=== PATIENT | male | born 1970 | race African-American/Black ===

== ENCOUNTER 2021-09-29 04:19 | Emergency (ER) | payer SELFPAY ==
[~2021-09-29] VITALS: Ht 182.9 cm; Wt 125.0 kg
[2021-09-29 04:35] VITALS: BP 130/86
== END 2021-09-29 19:21 | disposition home or self-care (01) ==
LOC: EDBD 04:19 → ER 04:19
DX: F91.8 Other conduct disorders (principal); L97.528 Non-pressure chronic ulcer of other part of left foot with other specified severity
CPT/HCPCS: 99284